=== PATIENT | female | born 1995 | race Caucasian/White ===

== ENCOUNTER 2022-03-06 08:15 | Emergency (ER) | payer SELFPAY ==
[~2022-03-06 08:15] MED LIST: COLACE 100MG C100 MG PO
[2022-03-06 08:52] LABS: HEMOGLOBIN 13.6 gm/dl (12.3-15.3); RED BLOOD COUNT 4.63 M/UL (4.00-5.10); WHITE BLOOD COUNT 9.9 K/UL (4.5-11.0)
[2022-03-06 09:15] LABS: BUN/CREATININE RATIO 30 (0-10)
[2022-03-06] MEDS ORDERED: IBU600 MG PO (10:57)
== END 2022-03-06 11:02 | disposition home or self-care (01) ==
LOC: ER1 08:15
PROVIDERS: Student in an Organized Health Care Education/Training Program
DX: R07.9 Chest pain, unspecified (principal); F17.210 Nicotine dependence, cigarettes, uncomplicated; Z20.822 Contact with and (suspected) exposure to COVID-19
CPT/HCPCS: 0240U; 71045; 80053; 82550; 82553; 84484; 84702; 85025; 85379; 93005; 96374; 99285; J1885